=== PATIENT | female | born 1970 | race Caucasian/White ===

== ENCOUNTER 2018-06-22 11:05 | Emergency (ER) | payer SELFPAY ==
[~2018-06-22] VITALS: Ht 167.6 cm; Wt 63.6 kg
[2018-06-22 11:10] VITALS: Ht 167.6 cm; Wt 63.6 kg
[2018-06-22 12:51] VITALS: BP 142/80
== END 2018-06-22 12:54 | disposition home or self-care (01) ==
LOC: D.ER 11:05
DX: Z20.2 Contact with and (suspected) exposure to infections with a predominantly sexual mode of transmission (principal)

== ENCOUNTER 2018-08-21 15:50 | Emergency (ER) | payer SELFPAY | END 2018-08-22 00:20 | disposition left against medical advice (07) | LOC: D.ER 15:50 | DX: R30.0 Dysuria (principal) ==

== ENCOUNTER 2018-08-22 13:51 | Emergency (ER) | payer SELFPAY ==
[~2018-08-22] VITALS: Ht 167.6 cm; Wt 63.6 kg
[2018-08-22 14:16] VITALS: Ht 167.6 cm; Wt 63.6 kg
[2018-08-22 16:15] VITALS: BP 150/71
[2018-08-22 16:17] LABS: APPEARANCE CLEAR (CLEAR); BILIRUBIN NEGATIVE (NEGATIVE); COLOR YELLOW (YELLOW); GLUCOSE NEGATIVE (NEGATIVE); KETONE NEGATIVE (NEGATIVE); NITRITE NEGATIVE (NEGATIVE); PROTEIN NEGATIVE (NEGATIVE); SPECIFIC GRAVITY 1.025 (1.005-1.020); UROBILINOGEN NORMAL (NORMAL)
[2018-08-22 16:18] LABS: BACTERIA MODERATE /hpf (NONE SEEN); EPITHELIAL CELLS 0-5 /hpf (0-5); MUCUS <1+ /lpf (NONE SEEN)
[2018-08-24 17:08] LABS: CHLAMYDIA TRACHOMATIS, NAA Negative (Negative)
== END 2018-08-22 16:54 | disposition home or self-care (01) ==
LOC: D.ER 13:51
PROVIDERS: Family Medicine
DX: R30.0 Dysuria (principal)